=== PATIENT | female | born 1980 | race African-American/Black ===

== ENCOUNTER 2021-06-23 16:12 | Emergency (ER) | payer OTHER ==
[~2021-06-23] VITALS: Ht 157.5 cm; Wt 83.5 kg
[2021-06-23] MEDS ORDERED: NOVOLOG100 UNIT/1 SUBQ (16:54)
[2021-06-23 16:55] LABS: ABSOLUTE NEUTROPHILS 2.7 thou/uL (1.4-8.2); BASOPHILS 0.8 % (0.0-2.0); EOSINOPHILS 7.4 % (0.0-3.0); HEMATOCRIT 37.8 % (37.0-47.0); HEMOGLOBIN 12.4 gm/dL (12.0-15.0); LYMPHOCYTES 36.7 % (24.0-44.0); MCH 29.1 pg (26.0-34.0); MCHC 32.8 g/dL (28.0-37.0); MCV 88.7 fL (80.0-100.0); MONOCYTES 11.7 % (1.0-8.0); PLATELET COUNT 242 thou/uL (150-400); POLYS 43.4 % (36.0-66.0); RBC 4.26 mil/uL (4.20-5.00); RDW 13.9 % (10.5-14.5); WBC 6.1 thou/uL (4.0-11.0)
[2021-06-23] MEDS ORDERED: LEVEMIR100 UNIT/1 SUBQ (16:55)
[2021-06-23] MEDS ORDERED: JANUVIA25 MG PO (16:55)
[2021-06-23] MEDS ORDERED: TRAMADOL 50 MG50 MG PO (16:55)
[2021-06-23] MEDS ORDERED: LIPITOR10 MG PO (16:56)
[2021-06-23] MEDS ORDERED: DRIZALMA SPRINK30 MG PO (16:56)
[2021-06-23] MEDS ORDERED: FISH OIL 1,0001 EAC9 PO (16:57)
[2021-06-23] MEDS ORDERED: ZINC30 MG PO (16:57)
[2021-06-23] MEDS ORDERED: VITAMIN D3125 MC2 PO (16:57)
[2021-06-23 17:02] LABS: ANION GAP 4 mmol/L (7-16); BUN 12 mg/dL (7-18); CHLORIDE 107 mmol/L (98-107); CO2 31 mmol/L (21-32); CREATININE 0.9 mg/dL (0.6-1.0); GLUCOSE 314 mg/dL (74-106); POTASSIUM 4.2 mmol/L (3.5-5.1); SODIUM 142 mmol/L (136-145)
[2021-06-23 17:12] LABS: ALBUMIN 3.2 g/dL (3.4-5.0); SGOT 13 U/L (15-37); SGPT 31 U/L (14-59); TOTAL BILIRUBIN 0.2 mg/dL (0.2-1.0); TOTAL PROTEIN 7.1 g/dL (6.4-8.2); TROPONIN-I <0.06 ng/mL (<0.06)
[2021-06-23 18:40] VITALS: BP 144/81
[2021-06-23] MEDS ORDERED: VENTOLIN HFA 1818 GM INH (18:44)
--- NOTE | 2021-06-24 09:53 | EKG ---
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
== END 2021-06-23 18:40 | disposition home or self-care (01) ==
LOC: ER 16:12
PROVIDERS: Nurse Practitioner Family
DX: R00.0 Tachycardia, unspecified (principal); R07.89 Other chest pain; E11.9 Type 2 diabetes mellitus without complications; Z79.4 Long term (current) use of insulin; Z79.899 Other long term (current) drug therapy

== ENCOUNTER → 2021-07-24 | Outpatient (CLI) | payer BC ==
[~2021-07-24] MED LIST: DRIZALMA SPRINK30 MG PO; FISH OIL 1,0001 EAC9 PO; JANUVIA25 MG PO; LEVEMIR100 UNIT/1 SUBQ; LIPITOR10 MG PO; NOVOLOG100 UNIT/1 SUBQ; TRAMADOL 50 MG50 MG PO; VENTOLIN HFA 1818 GM INH; VITAMIN D3125 MC2 PO; ZINC30 MG PO
== END ==
LOC: SJCVCIMAG 07:26
PROVIDERS: ATTEND Internal Medicine Cardiovascular Disease
DX: R07.89 Other chest pain (principal); E78.5 Hyperlipidemia, unspecified; E11.9 Type 2 diabetes mellitus without complications; R00.0 Tachycardia, unspecified; Z86.16 Personal history of COVID-19

== ENCOUNTER 2021-10-19 16:42 | Emergency (ER) | payer BC ==
[~2021-10-19] VITALS: Ht 157.5 cm; Wt 81.7 kg
[2021-10-19 16:59] LABS: ABSOLUTE NEUTROPHILS 10.7 thou/uL (1.4-8.2); BASOPHILS 0.6 % (0.0-2.0); EOSINOPHILS 0.5 % (0.0-3.0); HEMATOCRIT 38.3 % (37.0-47.0); LYMPHOCYTES 8.9 % (24.0-44.0); MCH 29.2 pg (26.0-34.0); MCHC 33.8 g/dL (28.0-37.0); MCV 86.4 fL (80.0-100.0); MONOCYTES 2.2 % (1.0-8.0); PLATELET COUNT 249 thou/uL (150-400); POLYS 87.8 % (36.0-66.0); RBC 4.44 mil/uL (4.20-5.00); RDW 13.1 % (10.5-14.5); WBC 12.2 thou/uL (4.0-11.0)
[2021-10-19 17:07] LABS: CALCIUM 9.4 mg/dL (8.5-10.1); POTASSIUM 3.9 mmol/L (3.5-5.1)
[2021-10-19 17:13] LABS: ALBUMIN 3.6 g/dL (3.4-5.0); TOTAL BILIRUBIN 0.8 mg/dL (0.2-1.0); TOTAL PROTEIN 7.6 g/dL (6.4-8.2)
[2021-10-19] MEDS ORDERED: REGLAN 10 MG TA10 MG PO (18:08)
[2021-10-19] MEDS ORDERED: APAP W/CODEINE1 TA2 PO (18:08)
[2021-10-19] MEDS ORDERED: ZOFRAN ODT4 MG PO (18:08)
[2021-10-19 18:41] VITALS: BP 151/91
== END 2021-10-19 18:40 | disposition home or self-care (01) ==
LOC: ER 16:42
PROVIDERS: Emergency Medicine
DX: R10.13 Epigastric pain (principal); E11.40 Type 2 diabetes mellitus with diabetic neuropathy, unspecified; Z79.51 Long term (current) use of inhaled steroids; Z79.4 Long term (current) use of insulin; Z79.891 Long term (current) use of opiate analgesic; Z79.899 Other long term (current) drug therapy

== ENCOUNTER 2021-10-21 17:47 | Inpatient (IN) | payer BC ==
[~2021-10-21] VITALS: Ht 157.5 cm; Wt 86.2 kg
--- NOTE | ~2021-10-21 | EMS ---
[facility] [address] [place] [address] EMS Patient Care Report Name: HARRISON HARRIS Room #: 455-P [facility] IN M.R.#: [id number] Admission: 10/21/21 Attend Phys: Dwight Kaiser MD Discharge: 10/26/21 Date of : 76 Report #: [id number] THIS REPORT FOR: //name// Report Transmitted: 10/27/2021 14:06 EMS Care Summary [place], [place]/[facility] Incident [id number] @ 10/21/2021 16:45 Incident Location Formerly [facility] [address] [place] [address] Patient HARRISON HARRIS Female, 41 Years 1980 Patient Address [address] [place] [address] Patient History Diabetes,Neuropathy, Patient Allergies No known allergies, Patient Medications Insulin, Zofran, Chief Complaint ABD PAIN Disposition Transported No Lights/Christmas Dispatch Reason Sick Person Transported To [facility] Narrative PT FOUNDSEMI FOWLERS IN BED A/O XE C/O SEVERE ABDOMINAL PAIN. PT WAS DIAGNOSED WITH GASTRO PARESIS 2 DAYS PRIOR AND HASN'T BEEN ABLE TO KEEP [facility] [address] [place] [address] EMS Patient Care Report Name: HARRISON HARRIS Room #: 455-P DIS IN Jeramy#: [id number] Admission: 10/21/21 Attend Phys: Dwight Kaiser MD Discharge: 10/26/21 Date of : 76 Report #: [id number] ANYTHING DOWN ORALLY FOR 3 DAYS. TODAY THE PAIN GOT TOO BAD AND PT DECIDED TO GO TO THE HOSP. PT'S PAIN WENT FROM A 10 TO 3 WHILE ENROUTE AFTER THE FENTANYL AND SHE STATED THAT HER NAUSEA WAS "SO SO BETTER" AFTER THE ZOFRAN. NO OTHER CHANGES ENROUTE. Initial Vitals @17:12P: 100,R: 20,BP: 162/110,Pain: 10/10,GCS: 15,SpO2: 100,Revised Trauma: 12, @17:14P: 111,R: 16,BP: 165/114,Pain: 10/10,GCS: 15,Glucose: 228,SpO2: 100,Revised Trauma: 12, @17:32P: 104,R: 18,BP: 171/95,Pain: 3/10,GCS: 15,CO: 12,SpO2: 93,Revised Trauma: 12, Assessments @16:57MENTAL:No Abnormalities,SKIN:No Abnormalities,HEENT:Head/Face: No Abnormalities,Eyes: No Abnormalities,Neck/Airway: No Abnormalities,LUNG SOUNDS:Left Upper: Tenderness,Left Lower: Tenderness,General: Vomiting,Right Upper: Tenderness,Right Lower: Tenderness,General: Nausea,ABDOMEN:Left Upper: Tenderness,Left Lower: Tenderness,General: Vomiting,Right Upper: Tenderness,Right Lower: Tenderness,General: Nausea,PELVIS//GI:No Abnormalities,EXTREMITIES:Left Arm: No Abnormalities,Right Arm: No Abnormalities,Left Leg: No Abnormalities,Right Leg: No Abnormalities,PULSE:NEURO:No Abnormalities,@17:30MENTAL:No Abnormalities,SKIN:No Abnormalities,HEENT:Head/Face: No Abnormalities,Eyes: No Abnormalities,Neck/Airway: No Abnormalities,LUNG SOUNDS:Left Upper: Tenderness,Right Upper: Tenderness,Right Lower: Tenderness,Left Lower: Tenderness,Left Upper: Other,General: No Abnormalities,ABDOMEN:Left Upper: Tenderness,Right Upper: Tenderness,Right Lower: Tenderness,Left Lower: Tenderness,Left Upper: Other,General: No Abnormalities,PELVIS//GI:No Abnormalities,EXTREMITIES:Left Arm: No Abnormalities,Right Arm: No Abnormalities,Left Leg: No Abnormalities,Right Leg: No Abnormalities,PULSE:NEURO:No Abnormalities, Impression Abdominal Pain Procedures @17:27 Fentanyl - 100 Micrograms (mcg) - Intravenous (IV) Response: Improved @17:28 Zofran - 4 Milligrams (mg) - Intravenous (IV) Response: Improved @17:25 3-Lead ECG Response: UnchangedSucceeded @16:57 ALS Assessment Response: UnchangedSucceeded Timeline 16:42,Call Received 16:42,Dispatch Notified [address] [address] EMS Patient Care Report Name: HARRISON HARRIS Room #: 455-P [facility] IN M.R.#: [id number] Admission: 10/21/21 Attend Phys: Dwight Kaiser MD Discharge: 10/26/21 Date of : [birth year] Report #: [id number] 16:45,Dispatched 16:45,En Route 16:54,On Scene 16:56,At Patient 16:57,ALS Assessment,Response: UnchangedSucceeded, 17:12,BP: 162/110 M,PULSE: 100,RR: 20 R,SPO2: 100 Ox,ETCO2: ,BG: ,PAIN: 10,GCS: 15, 17:14,BP: 165/114 M,PULSE: 111,RR: 16 R,SPO2: 100 Ox,ETCO2: ,B,PAIN: 10,GCS: 15, 17:20,Depart Scene 17:25,3-Lead ECG,Response: UnchangedSucceeded, 17:27,Fentanyl - 100 Micrograms (mcg) - Intravenous (IV),Response: Improved 17:28,Zofran - 4 Milligrams (mg) - Intravenous (IV),Response: Improved 17:32,BP: 171/95 M,PULSE: 104,RR: 18 R,SPO2: 93 Ox,ETCO2: ,BG: ,PAIN: 3,GCS: 15, 17:42,At Destination 18:10,Call Closed Disclaimer v1.1 Copyright 2020 [employer] This EMS Care Summary contains data elements from the applicable legal record (which may be displayed differently). It is designed to provide pertinent information for the following purposes: continuity of care, clinical quality, and state data reporting. The complete legal record is available to ED staff and administrators of the receiving hospital in ES's Patient Tracker. All data is provided "as is."
[~2021-10-21 17:47] MED LIST changes: +APAP W/CODEINE1 TA2 PO; +REGLAN 10 MG TA10 MG PO; +ZOFRAN ODT4 MG PO
[2021-10-21 17:58] VITALS: BP 141/93
[2021-10-21 18:34] LABS: ABSOLUTE NEUTROPHILS 8.7 thou/uL (1.4-8.2); BASOPHILS 0.6 % (0.0-2.0); EOSINOPHILS 0.4 % (0.0-3.0); HEMATOCRIT 39.6 % (37.0-47.0); HEMOGLOBIN 13.3 gm/dL (12.0-15.0); LYMPHOCYTES 16.6 % (24.0-44.0); MCH 29.1 pg (26.0-34.0); MCHC 33.5 g/dL (28.0-37.0); MCV 86.8 fL (80.0-100.0); MONOCYTES 7.8 % (1.0-8.0); PLATELET COUNT 271 thou/uL (150-400); POLYS 74.6 % (36.0-66.0); RBC 4.56 mil/uL (4.20-5.00); RDW 12.8 % (10.5-14.5); WBC 11.7 thou/uL (4.0-11.0)
[2021-10-21 18:48] LABS: ANION GAP 9 mmol/L (7-16); BUN 14 mg/dL (7-18); CALCIUM 8.7 mg/dL (8.5-10.1); CHLORIDE 99 mmol/L (98-107); CO2 28 mmol/L (21-32); CREATININE 0.9 mg/dL (0.6-1.0); GLUCOSE 222 mg/dL (74-106); POTASSIUM 3.6 mmol/L (3.5-5.1); SODIUM 136 mmol/L (136-145)
[2021-10-21 18:59] LABS: ALBUMIN 3.3 g/dL (3.4-5.0); DIRECT BILIRUBIN < 0.1 mg/dL (<0.1-0.2); LIPASE 45 U/L (73-393); SGOT 12 U/L (15-37); SGPT 19 U/L (14-59); TOTAL BILIRUBIN 0.5 mg/dL (0.2-1.0); TOTAL PROTEIN 7.3 g/dL (6.4-8.2)
--- NOTE | 2021-10-21 19:04 | NUR ---
REPORT GIVEN TO GHAZALA MOY AT THIS TIME
[2021-10-21] MEDS ORDERED: OZEMPIC1 MG/0.71 SUBQ (19:39)
[2021-10-21 19:53] LABS: URINE BILIRUBIN NEGATIVE (Negative); URINE BLOOD NEGATIVE (Negative); URINE CLARITY CLEAR; URINE COLOR YELLOW; URINE GLUCOSE-RANDOM* 2+ (Negative); URINE KETONES 1+ (Negative); URINE LEUKOCYTES-REFLEX NEGATIVE (Negative); URINE NITRITE-REFLEX NEGATIVE (Negative); URINE PROTEIN (DIPSTICK) TRACE (Negative); URINE UROBILINOGEN 0.2 E.U./dl (0.2-1.0)
[2021-10-21] MEDS ORDERED: PEPCID40 MG PO (20:17)
[2021-10-22 07:08] LABS: ABSOLUTE NEUTROPHILS 6.3 thou/uL (1.4-8.2); BASOPHILS 0.7 % (0.0-2.0); EOSINOPHILS 0.7 % (0.0-3.0); HEMATOCRIT 38.7 % (37.0-47.0); HEMOGLOBIN 12.6 gm/dL (12.0-15.0); LYMPHOCYTES 19.6 % (24.0-44.0); MCH 28.3 pg (26.0-34.0); MCHC 32.5 g/dL (28.0-37.0); MCV 87.3 fL (80.0-100.0); MONOCYTES 9.2 % (1.0-8.0); PLATELET COUNT 232 thou/uL (150-400); POLYS 69.8 % (36.0-66.0); RBC 4.43 mil/uL (4.20-5.00)
[2021-10-22 07:15] LABS: CREATININE 0.8 mg/dL (0.6-1.0); POTASSIUM 3.5 mmol/L (3.5-5.1)
[2021-10-22 15:19] VITALS: BP 151/86
[2021-10-22 15:26] VITALS: BP 151/86
--- NOTE | 2021-10-22 17:51 | NUR ---
ASSUMED CARE OF PT AT 1505 THIS AFTERNOON. PT WAS BROUGHT UP FROM THE ER. PT C/O ABD PAIN AND NAUSEA. PT IS A/OX4 AND ASSESSMENTS WITH CARE PLAN PERDFORMED BY RN. CALL LIGHT AND OTHER NEEDS ARE IN REACH. MEDS AND TX GIVEN NEEDED AND SCHEDULED. WILL MONITOR AND NOTE ANY CHANGES.
[2021-10-22 19:52] VITALS: BP 154/91
[2021-10-23 04:06] LABS: GLYCOHEMOGLOBIN (HGB A1C) 8.6 % (4.8-5.6)
[2021-10-23 07:34] VITALS: BP 174/85
--- NOTE | 2021-10-23 09:36 | NUR ---
2472 THIS NURSE ASSUMES CARE OF PATIENT. PT IS CURRENTLY NPO FOR PROCEDURE. IS C/O NAUSEA. WILL GIVE ANTIEMETIC PER ORDER. NO OTHER COMPLAINTS AT THIS TIME. NORMAL RISE AND FALL OF CHEST SEEN, NO RESPIRATORY DISTRESS NOTED AT THIS TIME. IV IN PLACE AND INFUSING WELL. NORMAL SALINE AT 100 ML/HR PER ORDER.
--- NOTE | 2021-10-23 09:41 | NUR ---
41-year-old female came to ED c/o abdominal pain . Pt denies any diarrhea. No further complaints. Pt takes medication for DM. Pt also has hx of neuropathy. She has prolonged fullness after eating and recently has had emesis after with "rotten" foul smelling material. Last BM 5 days ago per jailene. Chart reivew. Cm tried to visit tom dent but she had visitor at bedside. Noted she is independent. No aniticpated dc needs, will cont following as needed if needs arise.
--- NOTE | 2021-10-23 09:52 | NUR ---
0940 AZUL FROM SURGERY CALLED FOR REPORT FOR PATIENT. REPORT GIVEN, A&OX4, RA, LUNGS CLEAR, REG HEART RATE, TACHY AT TIMES, C/O PAIN AND NAUSEA, NO MEDS GIVEN EXCEPT FOR ZOFRAN AND MORPHINE AT 0755, SEE EMAR. ABOUT TO GIVE COMPAZINE FOR NAUSEA. AZUL STATES THAT THEY WILL BE HERE AROUND 11 TO GET PATIENT, FOR 12 O'CLOCK PROCEDURE. 0916 PATIENT INFORMED OF PENDING PROCEDURE. AND ORDERS FOR UA FOR ORDERED.
--- NOTE | 2021-10-23 11:39 | NUR ---
AZUL FROM PRE OP HERE FOR PATIENT. PT LEFT FLOOR FOR PROCEDURE.
--- NOTE | 2021-10-23 13:51 | NUR ---
1330 PT BROUGHT BACK FROM PROCEDURE, IN A LOT OF PAIN, BP ELEVATED, IV WENT BAD, BLOOD ALL OVER BEDDING AND PATIENT.
[2021-10-23 19:37] VITALS: BP 154/98
--- NOTE | 2021-10-24 00:05 | NUR ---
PT ALERT AND ORIENTED X 4. UP AD REESE IN ROOM. IV INFUSING ORDERED. PT C/O NAUSEA AND ABD PAIN. COMPAZINE AND TRAMADOL GIVEN ORDERED. BLOOD SUGAR 196 AT HS. LANTUS INSULIN GIVEN. PT REFUSED LISPRO INSULIN FOR FEAR THAT HER BLOOD SUGAR WOULD DROP TOO LOW. PT APPEARS TO BE SLEEPING ON HOURLY ROUNDS.
[2021-10-24 05:20] LABS: HEMATOCRIT 36.2 % (37.0-47.0); HEMOGLOBIN 12.3 gm/dL (12.0-15.0); MCHC 33.9 g/dL (28.0-37.0); MCV 85.6 fL (80.0-100.0); RBC 4.23 mil/uL (4.20-5.00); RDW 13.1 % (10.5-14.5); WBC 6.7 thou/uL (4.0-11.0)
[2021-10-24 05:37] LABS: ALBUMIN 2.8 g/dL (3.4-5.0); CALCIUM 8.1 mg/dL (8.5-10.1); CREATININE 0.6 mg/dL (0.6-1.0); POTASSIUM 3.6 mmol/L (3.5-5.1); TOTAL BILIRUBIN 0.3 mg/dL (0.2-1.0); TOTAL PROTEIN 6.2 g/dL (6.4-8.2)
[2021-10-24 07:02] VITALS: BP 155/87
--- NOTE | 2021-10-24 07:49 | NUR ---
RE-ASSUMED CARE OF PT AT 0700 THIS MORNING. PT IS A/OX4 WITH ABD PAIN, ACHE AT 3 ON 1/10 SCALE. NO OTHER CHANGES SINCE REPORT FROM LAST NIGHT. ASSESSMENTS NOTED AND OTHERWISE UNREMARKABLE. PT IS UP AT REESE AND NO FALL PRECAUTIONS ARE NEEDED. CALL LIGHT AND OTHER NEEDS ARE IN REACH. MEDS AND TX GIVEN NEEDED AND SCHEDULED. WILL MONITOR AND NOTE ANY CHANGES. PT IS GOING TO BE X[facility]ERRED TO [facility] DUE TO STAFFING ISSUES.
[2021-10-24 07:59] VITALS: BP 155/87
[2021-10-24 16:52] VITALS: BP 154/95
--- NOTE | 2021-10-24 18:47 | NUR ---
PT ALERT AND ORIENTED TIMES FOUR. VSS. PT C/O N/V PRN MEDICATIONS GIVEN WITH GOOD RELEIF. PT TOLERATES FULL LIQUIDS. PT UP AB REESE WITH STEADY GAIT. PT MOM AT BEDSIDE FOR MOST OF THE SHIFT.
[2021-10-24 20:01] VITALS: BP 155/87
--- NOTE | 2021-10-25 04:30 | NUR ---
PATIENT AOX4 MAKES NEEDS KNONW. PAIN AND NAUSEA CONTROLLED THIS SHIFT. PATIENT NPO SINCE MIDNIGHT D/T UNTRASOUND IN THE AM. PATIENT IS UP AT REESE. PATIENT IN BED ASLEEP AT THSI TIME BREATHING REGULAR AND UNLABOURED.
[2021-10-25 08:00] VITALS: BP 143/88
--- NOTE | 2021-10-25 11:36 | NUR ---
AT 0830 STAFF CAME TO GET PATIENT FOR ULTRASOUND. PT IN STABLE CONDITION PRIOR TO LEAVING UNIT. PT CAME BACK AROUND 0945 FROM ULTRASOUND, STILL IN STABLE CONDITION. A&OX4, NORMAL RISE AND FALL OF CHEST SEEN, NO RESPIRATORY DISTRESS NOTED AT THIS TIME.
--- NOTE | 2021-10-25 16:06 | PATH ---
[facility] [address] [place] [address] PATHOLOGY RPT PROCEDURE Name: HARRISON HARRIS Room #: 455-P ADM IN M.R.#: [id number] Admission: 10/21/21 Date of : 76 Discharge: Report #: [id number] Path Case #: [id number] [facility] Accession Number: [id number] . 01 Material submitted: . gastrointestinal site - GASTRIC BX R/O H. PYLORI . 01 Clinical history: . ABD PAIN N/V . 02 Diagnosis: Gastric, biopsy: - Gastric antral mucosa with mild chronic inactive gastritis. - An H. pylori immunohistochemical stain is negative for H. pylori-like organisms. - Negative for dysplasia or malignancy. (ANK:mike; 10/25/2021) S 10/25/2021 0857 Local . 02 Electronically signed: . Marycruz Sneed MD, Pathologist NPI- [id number] . 01 Gross description: . The specimen is received in formalin, labeled "Harris, Harrison, gastric BX R/O H. pylori" and consists of multiple cordova soft irregular tissues aggregating 0.6 x 0.6 x 0.2 cm which are submitted in toto in A1. (TULUKSAK; 10/24/2021) DKA/DKA 10/24/2021 1316 Local . 02 Pathologist provided ICD-10: K29.50 . 02 CPT . 023774, [id number] Specimen Comment: A courtesy copy of this report has been sent to [phone] Specimen Comment: [id number] Specimen Comment: Report sent to / DR GARCIA Performed at: [address], [place] [id number] MD Chas Holliday MD Phone: [phone] Performed at: [address] [id number] Marycruz Sneed DR Phone: [phone]
[2021-10-25 16:41] VITALS: BP 143/87
[2021-10-25 19:50] VITALS: BP 123/74
--- NOTE | 2021-10-26 04:04 | NUR ---
RECEIVED CARE OF THIS PATIENT AT 1900. PATIENT ALERT AND ORIENTED X4. DENIES PAIN AND N/V. UP AD REESE. SLEPT MOST OF NIGHT.
[2021-10-26 06:25] LABS: HEMOGLOBIN 12.3 gm/dL (12.0-15.0); MCH 29.3 pg (26.0-34.0); MCHC 34.1 g/dL (28.0-37.0); RBC 4.19 mil/uL (4.20-5.00); RDW 13.3 % (10.5-14.5); WBC 6.6 thou/uL (4.0-11.0)
[2021-10-26 06:44] LABS: CALCIUM 8.7 mg/dL (8.5-10.1); CREATININE 0.8 mg/dL (0.6-1.0); MAGNESIUM 1.5 mg/dL (1.8-2.4); POTASSIUM 3.5 mmol/L (3.5-5.1)
[2021-10-26 07:35] VITALS: BP 136/91
[2021-10-26] MEDS ORDERED: PROTONIX 20 MG20 M1 PO (09:27)
[2021-10-26] MEDS ORDERED: PROTONIX40 M4 PO (10:18)
--- NOTE | 2021-10-26 13:41 | NUR ---
Pt A & O x4. Pt VS stable. pt had nausea this AM and received medications. Pt is independent with cares and ADLs and is up ad raz. Pt is room air. Pt received discharge orders to home. Discharge instructions reviewed with pt and pt verbalized understanding and signed instructions. Pt awaiting ride home.
--- NOTE | 2021-10-26 14:00 | NUR ---
Pt ride arrived. Pt wheeled to enterence with personal belongings and dischare instructions in wheelchair by staff. Pt left hospital without incident in private vehicle.
== END 2021-10-26 13:55 | disposition home or self-care (01) | DRG 74 ==
LOC: ER 17:47 → 4S 23:27 → 4W 23:27 → EROBS 23:27 → 4S 10-22 15:03 → 4W 10-24 08:21
PROVIDERS: Internal Medicine; Nurse Practitioner Family; Student in an Organized Health Care Education/Training Program; ADMIT Internal Medicine; ATTEND Internal Medicine
PROC: 0DB68ZX Excision of Stomach, Via Natural or Artificial Opening Endoscopic, Diagnostic (ICD-10-PCS; principal; 2021-10-23)
DX: E11.43 Type 2 diabetes mellitus with diabetic autonomic (poly)neuropathy (principal); E44.0 Moderate protein-calorie malnutrition; K31.84 Gastroparesis; E11.42 Type 2 diabetes mellitus with diabetic polyneuropathy; E11.65 Type 2 diabetes mellitus with hyperglycemia; J45.909 Unspecified asthma, uncomplicated; K20.90 Esophagitis, unspecified without bleeding; D25.9 Leiomyoma of uterus, unspecified; Z20.822 Contact with and (suspected) exposure to COVID-19; E78.5 Hyperlipidemia, unspecified; F32.9 Major depressive disorder, single episode, unspecified; Z79.1 Long term (current) use of non-steroidal anti-inflammatories (NSAID)
CPT/HCPCS: 10040; 10195; 62110; 62900; 70005